=== PATIENT | male | born 1970 | race Caucasian/White ===

== ENCOUNTER 2018-12-22 00:37 | Inpatient (IN) | payer MEDICAID ==
[~2018-12-22] VITALS: Ht 165.1 cm; Wt 80.5 kg
[2018-12-22] MEDS ORDERED: MAGNESIUM/ALUMINUM HYDROXIDE/SIMETHICONE 30ML UDC PO STA (01:00)
[2018-12-22] MEDS ORDERED: FAMOTIDINE 20MG/2ML VIAL IV STA (01:00)
[2018-12-22] MEDS ORDERED: VISCOUS LIDOCAINE 2% 15 ML UDC PO STA (01:00)
[2018-12-22] MEDS ORDERED: ONDANSETRON HCL 4MG/2ML INJ IV STA (01:00)
[2018-12-22 01:13] LABS: HEMATOCRIT. 42.1 % (42.0-52.0); HEMOGLOBIN. 14.7 g/dL (14.0-18.0); MEAN CORPUSCULAR HEMOGLOBIN 32.9 pg (28.0-32.0); MEAN CORPUSCULAR VOLUME 94.2 fL (80.0-94.0); MEAN PLATELET VOLUME 6.6 fl (7.4-10.4); PLATELET 298 x1000/uL (130-400); RED BLOOD CELL COUNT 4.47 mill/uL (4.7-6.1)
[2018-12-22 01:21] LABS: CHLORIDE 95 mEq/L (98-107)
[2018-12-22 02:06] LABS: PLATELET ESTIMATE NORMAL
[2018-12-22] MEDS ORDERED: SODIUM CHLORIDE 0.9% 1,000 ML IV ONE ×2 (02:15)
[2018-12-22] MEDS ORDERED: MORPHINE SULFATE 4 MG/ML CPJ (NOT FOR IM USE) IV SCH (02:21)
[2018-12-22] MEDS ORDERED: MORPHINE SULFATE 4 MG/ML CPJ (NOT FOR IM USE) IV PRN ×2 (07:00→15:00)
[2018-12-22] MEDS ORDERED: CLONIDINE 0.1MG TABLET PO PRN (07:00)
[2018-12-22] MEDS ORDERED: IPRATROPIUM/ALBUTEROL 0.5-3(2.5)MG/3ML NEB INH PRN (07:00)
[2018-12-22] MEDS ORDERED: LABETALOL 5MG/ML SYR 20 MG/4 ML SYRINGE IV NR (07:00)
[2018-12-22] MEDS ORDERED: HYDRALAZINE 20MG/ML VIAL IV NR (09:15)
[2018-12-22] MEDS: HYDROCODONE/ACETAMINOPHEN 5/325MG TABLET PO PRN ×2 (10:12→18:16)
[2018-12-22] MEDS ORDERED: NICARDIPINE 40MG/200ML PREMIX 200 ML IV ONE ×2 (12:23→12:30)
[2018-12-22 14:22] LABS: PHOSPHORUS 3.9 mg/dL (2.5-4.9)
[2018-12-22 14:47] LABS: HEPATITIS B SURFACE ANTIGEN NEGATIVE
[2018-12-22 15:17] LABS: HEPATITIS A AB IGM NEGATIVE (NEGATIVE)
[2018-12-22] MEDS ORDERED: IOHEXOL-300 100 ML BOTTLE ONE (16:52)
[2018-12-22] MEDS: SODIUM CHLORIDE 0.9% 1,000 ML IV SCH (18:15)
[2018-12-22] MEDS ORDERED: NICARDIPINE 40MG/200ML PREMIX 200 ML IV PRN (20:45)
[2018-12-22] MEDS ORDERED: ENALAPRIL 2.5MG/2ML VIAL 2ML IV NR (21:45)
[2018-12-23] VITALS (12 sets, daily range): BP systolic 136–176; BP diastolic 88–109
[2018-12-23] MEDS: ENALAPRIL 2.5MG/2ML VIAL 2ML IV SCH ×4 (03:48→22:13)
[2018-12-23] MEDS: HYDROCODONE/ACETAMINOPHEN 5/325MG TABLET PO PRN (04:13)
[2018-12-23 05:59] LABS: HEMATOCRIT. 42.2 % (42.0-52.0); HEMOGLOBIN. 14.6 g/dL (14.0-18.0); MEAN CORPUSCULAR HEMOGLOBIN 33.3 pg (28.0-32.0); MEAN CORPUSCULAR VOLUME 96.3 fL (80.0-94.0); MEAN PLATELET VOLUME 6.9 fl (7.4-10.4); PLATELET 218 x1000/uL (130-400); RED BLOOD CELL COUNT 4.38 mill/uL (4.7-6.1); RED CELL DISTRIBUTION WIDTH 12.3 % (11.6-14.6)
[2018-12-23] MEDS ORDERED: CLONIDINE HCL 0.1MG/24HR PATCH TD NR (07:00)
[2018-12-23 07:05] LABS: CHLORIDE 99 mEq/L (98-107)
[2018-12-23 07:38] LABS: CREATINE KINASE MB FRACTION < 1.0 ng/mL (0.5-3.6)
[2018-12-23 07:39] LABS: CREATINE KINASE 78 IU/L (39-308); LDL CHOLESTEROL 63 mg/dL (5-100)
[2018-12-23 07:40] LABS: HDL CHOLESTEROL 44 mg/dL (40-59)
[2018-12-23] MEDS ORDERED: DEXTROSE 50% WATER 50ML SYRINGE IV PRN (10:00)
[2018-12-23] MEDS: SODIUM CHLORIDE 0.9% 1,000 ML IV SCH ×3 (10:22→18:27)
[2018-12-23] MEDS: BISACODYL 10MG SUPP PR SCH (12:00)
[2018-12-23] MEDS: INSULIN LISPRO 100 UNITS/ML SUBCUT SCH ×2 (12:00→18:00)
[2018-12-23] MEDS: BLOOD SUGAR DIAGNOSTIC STRIP TEST SCH ×2 (12:02→18:04)
[2018-12-23] MEDS ORDERED: HYDRALAZINE 20MG/ML VIAL IV PRN (12:15)
[2018-12-23] MEDS ORDERED: POTASSIUM CHLORIDE INJ 40 MEQ in DEXT 5% WATER 250 ML IV SCH (13:00)
[2018-12-23] MEDS ORDERED: MAGNESIUM 2 G PREMIX 50 ML IV NR (13:00)
[2018-12-23 14:13] LABS: PLATELET ESTIMATE NORMAL
[2018-12-23] MEDS: LABETALOL 5MG/ML SYR 20 MG/4 ML SYRINGE IV SCH (17:41)
[2018-12-23] MEDS: AMLODIPINE 5MG TABLET PO SCH (22:13)
[2018-12-24] VITALS (8 sets, daily range): BP systolic 124–160; BP diastolic 63–105
[2018-12-24] MEDS: LORAZEPAM 2MG/ML CPJ IV PRN (02:02)
[2018-12-24] MEDS: LABETALOL 5MG/ML SYR 20 MG/4 ML SYRINGE IV SCH ×4 (02:06→17:36)
[2018-12-24] MEDS: SODIUM CHLORIDE 0.9% 1,000 ML IV SCH ×4 (02:27→18:27)
[2018-12-24] MEDS: INSULIN LISPRO 100 UNITS/ML SUBCUT SCH ×5 (04:38→20:18)
[2018-12-24] MEDS: ENALAPRIL 2.5MG/2ML VIAL 2ML IV SCH ×3 (05:36→15:30)
[2018-12-24] MEDS: BLOOD SUGAR DIAGNOSTIC STRIP TEST SCH ×5 (05:36→20:10)
[2018-12-24 06:38] LABS: HEMATOCRIT. 38.9 % (42.0-52.0); HEMOGLOBIN. 13.4 g/dL (14.0-18.0); MEAN CORPUSCULAR HEMOGLOBIN 33.3 pg (28.0-32.0); MEAN CORPUSCULAR VOLUME 96.4 fL (80.0-94.0); MEAN PLATELET VOLUME 7.2 fl (7.4-10.4); PLATELET 229 x1000/uL (130-400); RED BLOOD CELL COUNT 4.04 mill/uL (4.7-6.1); RED CELL DISTRIBUTION WIDTH 12.6 % (11.6-14.6)
[2018-12-24 06:39] LABS: CHLORIDE 94 mEq/L (98-107)
[2018-12-24] MEDS: BISACODYL 10MG SUPP PR SCH (09:05)
[2018-12-24] MEDS: AMLODIPINE 5MG TABLET PO SCH (09:05)
[2018-12-24 12:09] LABS: CLARITY URINE CLEAR (CLEAR); COLOR URINE ORANGE (YELLOW); KETONES URINE TRACE (NEGATIVE); LEUKOCYTE ESTERASE URINE TRACE (NEGATIVE); NITRITE URINE NEGATIVE (NEGATIVE); OCCULT BLOOD URINE 1+ (NEGATIVE); PROTEIN URINE 1+ (NEGATIVE); SPECIFIC GRAVITY URINE 1.021 (1.005-1.030)
[2018-12-24 12:31] LABS: *BENZODIAZEPINES SCREEN URINE NEGATIVE (NEGATIVE); *COCAINE SCREEN URINE NEGATIVE (NEGATIVE)
[2018-12-24 12:32] LABS: *AMPHETAMINES SCREEN URINE NEGATIVE (NEGATIVE); *BARBITURATES SCREEN URINE NEGATIVE (NEGATIVE); CANNABINOID URINE SCREEN NEGATIVE (NEGATIVE); METHADONE URINE SCREEN NEGATIVE (NEGATIVE); OPIATES URINE SCREEN PRESUMTIVE POSITIVE (NEGATIVE); PHENCYCLIDINE URINE SCREEN NEGATIVE (NEGATIVE)
[2018-12-24] MEDS ORDERED: HYDRALAZINE HCL 50MG TABLET PO SCH ×2 (14:00→22:00)
[2018-12-24] MEDS: ACETAMINOPHEN 325MG TABLET PO PRN (18:16)
[2018-12-24] MEDS: LABETALOL HCL 100MG TABLET PO SCH (20:07)
[2018-12-24] MEDS: LOSARTAN POTASSIUM 50 MG TABLET PO SCH (20:08)
[2018-12-24] MEDS: AMLODIPINE 10MG TABLET PO SCH (20:08)
[2018-12-24] MEDS: CLONIDINE 0.1MG TABLET PO SCH (23:53)
[2018-12-25] VITALS (8 sets, daily range): BP systolic 110–145; BP diastolic 43–87
[2018-12-25] MEDS: SODIUM CHLORIDE 0.9% 1,000 ML IV SCH ×3 (03:13→21:44)
[2018-12-25 06:04] LABS: BASOPHILS % 0.1 % (0.0-2.0); EOSINOPHILS % 0.4 % (0.0-5.0); HEMOGLOBIN. 12.5 g/dL (14.0-18.0); LYMPHOCYTES % 7.3 % (20.0-50.0); MEAN CORPUSCULAR HEMOGLOBIN 33.5 pg (28.0-32.0); MEAN CORPUSCULAR VOLUME 96.4 fL (80.0-94.0); MEAN PLATELET VOLUME 7.6 fl (7.4-10.4); NEUTROPHILS % 86.2 % (40.0-76.0); PLATELET 201 x1000/uL (130-400); RED BLOOD CELL COUNT 3.73 mill/uL (4.7-6.1); RED CELL DISTRIBUTION WIDTH 12.5 % (11.6-14.6)
[2018-12-25] MEDS: INSULIN LISPRO 100 UNITS/ML SUBCUT SCH ×4 (06:12→20:42)
[2018-12-25] MEDS: CLONIDINE 0.1MG TABLET PO SCH (06:12)
[2018-12-25] MEDS: BLOOD SUGAR DIAGNOSTIC STRIP TEST SCH ×4 (06:13→20:42)
[2018-12-25 08:15] LABS: PLATELET ESTIMATE NORMAL
[2018-12-25 09:23] LABS: CHLORIDE 95 mEq/L (98-107)
[2018-12-25] MEDS: BISACODYL 10MG SUPP PR SCH (10:30)
[2018-12-25] MEDS: AMLODIPINE 10MG TABLET PO SCH ×2 (10:34→21:56)
[2018-12-25] MEDS: LABETALOL HCL 100MG TABLET PO SCH ×2 (10:34→21:56)
[2018-12-25] MEDS: LOSARTAN POTASSIUM 50 MG TABLET PO SCH ×2 (10:34→21:55)
[2018-12-25] MEDS: PANTOPRAZOLE SODIUM 40 MG/VIAL IV SCH (13:20)
[2018-12-25] MEDS: HYDRALAZINE HCL 100MG TABLET PO SCH ×2 (13:20→22:26)
[2018-12-25] MEDS: CLONIDINE 0.2MG TABLET PO SCH ×2 (13:21→22:26)
[2018-12-25] MEDS ORDERED: POTASSIUM CHLORIDE 20MEQ TABLET SR PO NR (15:30)
[2018-12-25] MEDS: LORAZEPAM 2MG/ML CPJ IV PRN (22:29)
[2018-12-26] VITALS (7 sets, daily range): BP systolic 96–133; BP diastolic 49–78
[2018-12-26] MEDS: ACETAMINOPHEN 325MG TABLET PO PRN ×2 (00:02→00:08)
[2018-12-26] MEDS: HYDRALAZINE HCL 100MG TABLET PO SCH ×2 (05:44→12:58)
[2018-12-26] MEDS: CLONIDINE 0.2MG TABLET PO SCH ×2 (05:45→12:59)
[2018-12-26 06:21] LABS: BASOPHILS % 0.1 % (0.0-2.0); EOSINOPHILS % 1.1 % (0.0-5.0); HEMATOCRIT. 33.9 % (42.0-52.0); HEMOGLOBIN. 11.6 g/dL (14.0-18.0); MEAN CORPUSCULAR HEMOGLOBIN 33.3 pg (28.0-32.0); MEAN PLATELET VOLUME 7.3 fl (7.4-10.4); MONOCYTES % 10.1 % (2.0-8.0); NEUTROPHILS % 78.7 % (40.0-76.0); PLATELET 205 x1000/uL (130-400); RED BLOOD CELL COUNT 3.49 mill/uL (4.7-6.1); RED CELL DISTRIBUTION WIDTH 12.1 % (11.6-14.6)
[2018-12-26 07:44] LABS: CHLORIDE 92 mEq/L (98-107)
[2018-12-26] MEDS: PANTOPRAZOLE SODIUM 40 MG/VIAL IV SCH (08:46)
[2018-12-26] MEDS: LOSARTAN POTASSIUM 50 MG TABLET PO SCH (08:46)
[2018-12-26] MEDS: LABETALOL HCL 100MG TABLET PO SCH (08:46)
[2018-12-26] MEDS: AMLODIPINE 10MG TABLET PO SCH (08:46)
[2018-12-26] MEDS: BISACODYL 10MG SUPP PR SCH (09:00)
[2018-12-26] MEDS: INSULIN LISPRO 100 UNITS/ML SUBCUT SCH ×3 (11:30→17:20)
[2018-12-26] MEDS: BLOOD SUGAR DIAGNOSTIC STRIP TEST SCH ×3 (11:30→17:19)
[2018-12-26] MEDS: SODIUM CHLORIDE 0.9% 1,000 ML IV SCH (15:47)
[2018-12-26] MEDS ORDERED: CLON0.2T12 PO (18:33)
[2018-12-26] MEDS ORDERED: HYDR100T26 PO (18:33)
[2018-12-26] MEDS ORDERED: LOSA50TA3 PO (18:33)
[2018-12-26] MEDS ORDERED: AMLO10TA80 PO (18:33)
[2018-12-26] MEDS ORDERED: LABE100T5 PO (18:33)
[2018-12-26] MEDS ORDERED: CLON1PAT10 TD (18:33)
[2018-12-26] MEDS ORDERED: POTASSIUM CHLORIDE 20MEQ TABLET SR PO NR (19:00)
== END 2018-12-26 19:47 | disposition home or self-care (01) | DRG 282 ==
LOC: ER 00:37 → 5EST 02:16 → CANRESERV 04:50 → ENRESERV 04:50 → EDBEDREQSVC 12:07 → ENRESERV 21:32 → 7WST 12-25 20:58
PROVIDERS: ADMIT Internal Medicine; ATTEND Internal Medicine
DX: K85.20 Alcohol induced acute pancreatitis without necrosis or infection (principal); R65.11 Systemic inflammatory response syndrome (SIRS) of non-infectious origin with acute organ dysfunction; R18.8 Other ascites; I11.9 Hypertensive heart disease without heart failure; E87.1 Hypo-osmolality and hyponatremia; F10.20 Alcohol dependence, uncomplicated; I16.1 Hypertensive emergency; L71.9 Rosacea, unspecified; K86.3 Pseudocyst of pancreas; Y90.1 Blood alcohol level of 20-39 mg/100 ml; R73.9 Hyperglycemia, unspecified; R00.0 Tachycardia, unspecified; K76.0 Fatty (change of) liver, not elsewhere classified; I78.1 Nevus, non-neoplastic; Z91.14 Patient's other noncompliance with medication regimen; Z91.19 Patient's noncompliance with other medical treatment and regimen
CPT/HCPCS: 36415; 71045; 74177; 76705; 80048; 80061; 80076; 80305; 82550; 82553; 82570; 82962; 83036; 83735; 83880; 83935; 84100; 84145; 84300; 84443; 84484; 85379; 86705; 86709; 86803; 87340; 93005; 93306; 93970; 96361; 96374; 96375; 96376; 99285; C1893; C9113; J0360; J1815; J2060; J2270; J2405; J3475; J3480; J3490; J7030; J7060; Q9967

== ENCOUNTER 2020-04-10 09:51 | Inpatient (IN) | payer MEDICAID ==
[~2020-04-10] VITALS: Ht 165.1 cm; Wt 77.6 kg
[~2020-04-10 09:51] MED LIST: AMLO10TA80 PO; CLON0.2T12 PO; CLON1PAT10 TD; HYDR100T26 PO; LABE100T5 PO; LOSA50TA3 PO
[2020-04-10] MEDS ORDERED: FAMOTIDINE 20MG/2ML VIAL IV STA (10:03)
[2020-04-10] MEDS ORDERED: ONDANSETRON HCL 4MG/2ML INJ IV STA (10:03)
[2020-04-10] MEDS ORDERED: SODIUM CHLORIDE 0.9% 1,000 ML IV ONE ×2 (10:03→11:52)
[2020-04-10 10:18] LABS: HEMATOCRIT. 43.2 % (42.0-52.0); MEAN CORPUSCULAR HEMOGLOBIN 31.2 pg (28.0-32.0); MEAN CORPUSCULAR VOLUME 89.9 fL (80.0-94.0); MEAN PLATELET VOLUME 7.4 fl (7.4-10.4); PLATELET 247 x1000/uL (130-400); RED CELL DISTRIBUTION WIDTH 14.2 % (11.6-14.6)
[2020-04-10 10:28] LABS: CHLORIDE 101 mEq/L (98-107); INR 1.2
[2020-04-10 10:33] LABS: ETHANOL BLOOD 22 mg/dL
[2020-04-10] MEDS ORDERED: MORPHINE SULFATE 4 MG/ML CPJ (NOT FOR IM USE) IV ONE (10:45)
[2020-04-10 10:48] LABS: PLATELET ESTIMATE NORMAL
[2020-04-10 12:05] LABS: CLARITY URINE CLEAR (CLEAR); COLOR URINE YELLOW (YELLOW); KETONES URINE 3+ (NEGATIVE); LEUKOCYTE ESTERASE URINE NEGATIVE (NEGATIVE); NITRITE URINE NEGATIVE (NEGATIVE); OCCULT BLOOD URINE NEGATIVE (NEGATIVE); PH URINE 7.5 (4.5-8.0); PROTEIN URINE 2+ (NEGATIVE); SPECIFIC GRAVITY URINE 1.017 (1.005-1.030)
[2020-04-10 12:09] LABS: AMYLASE 937 IU/L (25-115)
[2020-04-10 12:19] LABS: METHADONE URINE SCREEN NEGATIVE (NEGATIVE)
[2020-04-10 12:20] LABS: OPIATES URINE SCREEN NEGATIVE (NEGATIVE); PHENCYCLIDINE URINE SCREEN NEGATIVE (NEGATIVE)
[2020-04-10 12:22] LABS: *BENZODIAZEPINES SCREEN URINE NEGATIVE (NEGATIVE)
[2020-04-10 12:23] LABS: *AMPHETAMINES SCREEN URINE NEGATIVE (NEGATIVE); *BARBITURATES SCREEN URINE NEGATIVE (NEGATIVE)
[2020-04-10 12:26] LABS: *COCAINE SCREEN URINE NEGATIVE (NEGATIVE)
[2020-04-10 12:28] LABS: CANNABINOID URINE SCREEN NEGATIVE (NEGATIVE)
[2020-04-10] MEDS ORDERED: ONDANSETRON HCL 4MG/2ML INJ IV PRN (14:15)
[2020-04-10] MEDS ORDERED: AMLODIPINE 10MG TABLET PO NR (15:30)
[2020-04-10] MEDS: PIPERACILLIN/TAZOBACTAM 3.375 G in DEXT 5% WATER 100 ML IV SCH ×2 (15:53→23:12)
[2020-04-10] MEDS: MORPHINE SULFATE 2 MG/ML CPJ (NOT FOR IM USE) IV PRN ×2 (15:54→22:28)
[2020-04-10] MEDS: FOLIC ACID 1 MG, THIAMINE HCL 100 MG, MVI, ADULT NO.1 10 ML in DEXTROSE 5% WATER 1,000 ML IV SCH ×4 (17:00)
[2020-04-10] MEDS ORDERED: HYDRALAZINE 20MG/ML VIAL IV NR (18:00)
[2020-04-10] MEDS: LOSARTAN POTASSIUM 100 MG TABLET PO SCH (19:38)
[2020-04-10] MEDS: CLONIDINE 0.1MG TABLET PO PRN (21:06)
[2020-04-10] MEDS: DEXT 5%/0.45% NACL 1000ML 1,000 ML IV SCH (21:59)
[2020-04-10] MEDS ORDERED: HYDRALAZINE 20MG/ML VIAL IV PRN (23:00)
[2020-04-11] VITALS (7 sets, daily range): BP systolic 127–165; BP diastolic 95–103
[2020-04-11] MEDS: DEXT 5%/0.45% NACL 1000ML 1,000 ML IV SCH ×3 (03:03→22:51)
[2020-04-11] MEDS: PIPERACILLIN/TAZOBACTAM 3.375 G in DEXT 5% WATER 100 ML IV SCH ×4 (05:25→22:50)
[2020-04-11] MEDS: FOLIC ACID 1 MG, THIAMINE HCL 100 MG, MVI, ADULT NO.1 10 ML in DEXTROSE 5% WATER 1,000 ML IV SCH ×4 (09:00)
[2020-04-11] MEDS: PANTOPRAZOLE SODIUM 40 MG/VIAL IV SCH (09:00)
[2020-04-11] MEDS: LOSARTAN POTASSIUM 100 MG TABLET PO SCH (09:20)
[2020-04-11] MEDS: AMLODIPINE 10MG TABLET PO SCH (09:20)
[2020-04-11] MEDS: CLONIDINE 0.1MG TABLET PO PRN ×2 (13:09→21:07)
[2020-04-11] MEDS: ACETAMINOPHEN 325MG TABLET PO PRN (21:07)
[2020-04-12] VITALS: BP 120/83
[2020-04-12 04:00] VITALS: BP 128/88
[2020-04-12] MEDS: PIPERACILLIN/TAZOBACTAM 3.375 G in DEXT 5% WATER 100 ML IV SCH (05:40)
[2020-04-12] MEDS: DEXT 5%/0.45% NACL 1000ML 1,000 ML IV SCH (06:15)
[2020-04-12 06:27] LABS: BASOPHILS % 0.1 % (0.0-2.0); EOSINOPHILS % 0.3 % (0.0-5.0); HEMATOCRIT. 39.7 % (42.0-52.0); HEMOGLOBIN. 13.2 g/dL (14.0-18.0); LYMPHOCYTES % 8.3 % (20.0-50.0); MEAN CORPUSCULAR HEMOGLOBIN 30.5 pg (28.0-32.0); MONOCYTES % 6.7 % (2.0-8.0); NEUTROPHILS % 84.6 % (40.0-76.0); PLATELET 204 x1000/uL (130-400); RED BLOOD CELL COUNT 4.32 mill/uL (4.7-6.1); RED CELL DISTRIBUTION WIDTH 14.1 % (11.6-14.6)
[2020-04-12 06:56] LABS: CHLORIDE 97 mEq/L (98-107)
[2020-04-12 08:00] VITALS: BP 114/78
[2020-04-12] MEDS: AMLODIPINE 10MG TABLET PO SCH (08:18)
[2020-04-12] MEDS: LOSARTAN POTASSIUM 100 MG TABLET PO SCH (08:18)
[2020-04-12] MEDS: PANTOPRAZOLE SODIUM 40 MG/VIAL IV SCH (08:18)
[2020-04-12] MEDS ORDERED: FOLIC ACID 1 MG, THIAMINE HCL 100 MG, MVI, ADULT NO.1 10 ML in DEXTROSE 5% WATER 1,000 ML IV SCH ×4 (09:00)
[2020-04-12] MEDS ORDERED: POTASSIUM CHLORIDE 20MEQ TABLET SR PO NR (10:45)
[2020-04-12] MEDS: SODIUM CHLORIDE 0.9% 1,000 ML IV SCH ×2 (11:06→22:30)
[2020-04-12 12:00] VITALS: BP 130/87
[2020-04-12 16:00] VITALS: BP 142/92
[2020-04-12 20:00] VITALS: BP 142/90
[2020-04-13] VITALS: BP 135/89
[2020-04-13] MEDS: LORAZEPAM 0.5MG TABLET PO PRN (00:23)
[2020-04-13 04:00] VITALS: BP 136/89
[2020-04-13 05:52] LABS: CHLORIDE 97 mEq/L (98-107)
[2020-04-13 05:58] LABS: PHOSPHORUS 1.9 mg/dL (2.5-4.9)
[2020-04-13 06:23] LABS: BASOPHILS % 0.1 % (0.0-2.0); EOSINOPHILS % 0.4 % (0.0-5.0); HEMATOCRIT. 37.4 % (42.0-52.0); HEMOGLOBIN. 12.7 g/dL (14.0-18.0); LYMPHOCYTES % 7.6 % (20.0-50.0); MEAN CORPUSCULAR HEMOGLOBIN 31.1 pg (28.0-32.0); MEAN CORPUSCULAR VOLUME 91.7 fL (80.0-94.0); MEAN PLATELET VOLUME 8.2 fl (7.4-10.4); NEUTROPHILS % 82.9 % (40.0-76.0); PLATELET 164 x1000/uL (130-400); RED BLOOD CELL COUNT 4.08 mill/uL (4.7-6.1); RED CELL DISTRIBUTION WIDTH 14.3 % (11.6-14.6)
[2020-04-13 08:00] VITALS: BP 152/90
[2020-04-13] MEDS: PANTOPRAZOLE SODIUM 40 MG/VIAL IV SCH (08:42)
[2020-04-13] MEDS: LOSARTAN POTASSIUM 100 MG TABLET PO SCH (08:42)
[2020-04-13] MEDS: SODIUM CHLORIDE 0.9% 1,000 ML IV SCH ×3 (08:42→23:50)
[2020-04-13] MEDS: AMLODIPINE 10MG TABLET PO SCH (08:43)
[2020-04-13] MEDS ORDERED: POTASSIUM CHLORIDE INJ 20 MEQ in DEXT 5% WATER 250 ML IV ONE (09:45)
[2020-04-13] MEDS ORDERED: POTASSIUM CHLORIDE 20MEQ TABLET SR PO NR (09:45)
[2020-04-13] MEDS ORDERED: KCL 20MEQ/100ML PREMIX 100 ML IV NR (10:30)
[2020-04-13 12:00] VITALS: BP 143/89
[2020-04-13] MEDS: ACETAMINOPHEN 325MG TABLET PO PRN (12:26)
[2020-04-13 16:00] VITALS: BP 137/85
[2020-04-13 20:00] VITALS: BP 152/90
[2020-04-14] VITALS: BP 157/90
[2020-04-14] MEDS: LORAZEPAM 0.5MG TABLET PO PRN (00:03)
[2020-04-14 04:00] VITALS: BP 111/82
[2020-04-14 06:34] LABS: CHLORIDE 96 mEq/L (98-107)
[2020-04-14 08:00] VITALS: BP 155/88
[2020-04-14] MEDS: PANTOPRAZOLE SODIUM 40 MG/VIAL IV SCH (09:12)
[2020-04-14] MEDS: AMLODIPINE 10MG TABLET PO SCH (09:12)
[2020-04-14] MEDS: LOSARTAN POTASSIUM 100 MG TABLET PO SCH (09:12)
[2020-04-14] MEDS ORDERED: POTASSIUM PHOS,M-BASIC-D-BASIC 30 MMOL in DEXT 5% WATER 500 ML IV NR (11:00)
[2020-04-14] MEDS: SODIUM CHLORIDE 0.9% 1,000 ML IV SCH (11:50)
[2020-04-14 12:09] VITALS: BP 134/87
[2020-04-14 16:00] VITALS: BP 152/90
[2020-04-14 20:00] VITALS: BP 130/82
[2020-04-15] VITALS: BP 130/88
[2020-04-15] MEDS: LORAZEPAM 0.5MG TABLET PO PRN (00:52)
[2020-04-15 04:00] VITALS: BP 144/90
[2020-04-15 08:00] VITALS: BP_SYST 121; BP_SYST 133; BP_DIAS 75; BP_DIAS 80
[2020-04-15] MEDS ORDERED: MAGNESIUM HYDROXIDE 400MG/5ML 30ML UDC PO PRN (08:15)
[2020-04-15] MEDS ORDERED: DOCUSATE SODIUM 100MG CAPSULE PO SCH (08:40)
[2020-04-15] MEDS: LOSARTAN POTASSIUM 100 MG TABLET PO SCH (08:45)
[2020-04-15] MEDS: SODIUM CHLORIDE 0.9% 1,000 ML IV SCH (08:45)
[2020-04-15] MEDS: AMLODIPINE 10MG TABLET PO SCH (08:45)
[2020-04-15 11:32] VITALS: BP 138/89
[2020-04-15] MEDS ORDERED: LOSA100T3 PO (12:25)
[2020-04-15] MEDS ORDERED: AMLO10TA80 PO (12:25)
== END 2020-04-15 13:55 | disposition home or self-care (01) | DRG 282 ==
LOC: ER 09:51 → MICUSO 13:32 → EDBEDREQ 13:33 → 5WST 23:59
PROVIDERS: ADMIT Internal Medicine; ATTEND Internal Medicine
DX: K85.90 Acute pancreatitis without necrosis or infection, unspecified (principal); E11.65 Type 2 diabetes mellitus with hyperglycemia; E87.1 Hypo-osmolality and hyponatremia; E87.2 Acidosis; I10 Essential (primary) hypertension; K59.00 Constipation, unspecified; I16.0 Hypertensive urgency; K70.0 Alcoholic fatty liver; Y90.1 Blood alcohol level of 20-39 mg/100 ml; F10.10 Alcohol abuse, uncomplicated; L71.9 Rosacea, unspecified; Z71.41 Alcohol abuse counseling and surveillance of alcoholic; Z79.899 Other long term (current) drug therapy; R65.10 Systemic inflammatory response syndrome (SIRS) of non-infectious origin without acute organ dysfunction
CPT/HCPCS: 36415; 71045; 74176; 80048; 80053; 80076; 80305; 80320; 81003; 82150; 82977; 83615; 83735; 84100; 84295; 84484; 85025; 93005; 99291; C9113; J0360; J2270; J2405; J2543; J3411; J3480; J3490; J7030; J7060; J7070; G0480